=== PATIENT | male | born 1940 | race Caucasian/White ===

== ENCOUNTER 2021-05-16 16:30 | Inpatient (IN) ==
[2021-05-16] MEDS ORDERED: Ondansetron 4 MG/2 ML VIAL IVP PRN (18:34)
[2021-05-16] MEDS ORDERED: Acetaminophen 325 MG TABLET PO PRN (18:34)
[2021-05-16] MEDS ORDERED: Melatonin 3 MG TABLET PO PRN (18:34)
[2021-05-16] MEDS ORDERED: Azithromycin 250 MG TABLET PO ONE (18:35)
[2021-05-16] MEDS ORDERED: Ipratropium/Albuterol Neb 3 ML IH PRN (18:40)
[2021-05-16] MEDS: Ipratropium/Albuterol Neb 3 ML IH SCH (20:41)
[2021-05-16] MEDS: Melatonin 3 MG TABLET PO PRN (20:54)
[2021-05-16] MEDS: GuaiFENesin Liq 200 MG/10 ML UDC PO PRN (20:54)
[2021-05-17] MEDS: Ipratropium/Albuterol Neb 3 ML IH SCH ×4 (03:22→21:39)
[2021-05-17 05:25] LABS: Hemoglobin 11.6 g/dL (12.9-16.9); Mean Corpuscular HGB Conc 32.2 g/dL (31.6-35.5); Mean Corpuscular Hemoglobin 31.9 pg (28.0-33.3); Mean Corpuscular Volume 98.9 fL (83.0-100.0); Mean Platelet Volume 11.4 fL (9.4-12.4); Platelet Count 268 K/mcL (140-400); Red Blood Count 3.64 M/mcL (4.19-5.50); White Blood Count 10.5 K/mcL (4.3-11.1)
[2021-05-17] MEDS: *HR* Heparin 5,000 UNIT/ML VIAL SQ SCH ×2 (05:37→17:40)
[2021-05-17 05:41] LABS: BUN/Creatinine Ratio 29 (6-26); Blood Urea Nitrogen 25 mg/dL (8-23); Calcium 8.4 mg/dL (8.6-10.3); Carbon Dioxide 27 mEq/L (23-29); Chloride 105 mEq/L (98-107); Glucose 175 mg/dL (70-105); Magnesium 1.9 mg/dL (1.6-2.6); Osmolality,Calculated 293 (280-300); Phosphorous 3.7 mg/dL (2.7-4.5); Potassium 4.9 mEq/L (3.5-5.1); Sodium 137 mEq/L (136-145); eGFR For African Americans > 60 (> 60); eGFR For Non-African Americans > 60 (> 60)
[2021-05-17] MEDS: Azithromycin 250 MG TABLET PO SCH (08:57)
[2021-05-17] MEDS: predniSONE 20 MG TABLET PO SCH (08:57)
[2021-05-17] MEDS: cefTRIAXone 1,000 MG in Water for inj. (sterile) 10 ML IVP SCH (08:57)
[2021-05-17] MEDS: GuaiFENesin Liq 200 MG/10 ML UDC PO PRN (19:58)
[2021-05-17] MEDS: Melatonin 3 MG TABLET PO PRN (19:58)
[2021-05-18] MEDS: Ipratropium/Albuterol Neb 3 ML IH SCH ×4 (04:57→20:33)
[2021-05-18] MEDS: *HR* Heparin 5,000 UNIT/ML VIAL SQ SCH ×2 (06:34→17:00)
[2021-05-18] MEDS: cefTRIAXone 1,000 MG in Water for inj. (sterile) 10 ML IVP SCH (08:51)
[2021-05-18] MEDS: Azithromycin 250 MG TABLET PO SCH (08:51)
[2021-05-18] MEDS: predniSONE 20 MG TABLET PO SCH (08:51)
[2021-05-18] MEDS ORDERED: Perflutren Lipid Microsphere 1.3 ML in 0.9 % Sodium Chloride 8.7 ML IVP PRN (13:04)
[2021-05-18] MEDS: GuaiFENesin Liq 200 MG/10 ML UDC PO PRN (21:17)
[2021-05-18] MEDS: Melatonin 3 MG TABLET PO PRN (21:17)
[2021-05-19] MEDS: Ipratropium/Albuterol Neb 3 ML IH SCH ×3 (03:57→15:33)
[2021-05-19] MEDS: *HR* Heparin 5,000 UNIT/ML VIAL SQ SCH ×2 (05:34→16:22)
[2021-05-19 06:43] VITALS: TEMP 97.5
[2021-05-19] MEDS: Azithromycin 250 MG TABLET PO SCH (09:10)
[2021-05-19] MEDS: predniSONE 20 MG TABLET PO SCH (09:11)
[2021-05-19] MEDS: cefTRIAXone 1,000 MG in Water for inj. (sterile) 10 ML IVP SCH (09:11)
[2021-05-19 15:16] VITALS: BP 141/68; PULSE 76; O2SAT 94
== END 2021-05-19 18:18 | disposition home or self-care (01) | DRG 190 ==
LOC: 3BNU → SUATTDRO 05-17 14:07
PROVIDERS: ADMIT Internal Medicine; ATTEND Registered Nurse